=== PATIENT | female | born 1980 | race Caucasian/White ===

== ENCOUNTER 2018-10-08 10:47 | Emergency (ER) | END 2018-10-08 13:28 | disposition home or self-care (01) ==

== ENCOUNTER 2018-12-15 09:46 | Emergency (ER) | payer OTHER ==
[~2018-12-15] VITALS: Ht 162.6 cm; Wt 112.4 kg
[~2018-12-15 09:46] MED LIST: ALBU18HF INHALATION; D-ME473S2 PO; PRED20TA PO
[2018-12-15 09:52] VITALS: BP 126/67; PULSE 99; RESP 18; Ht 162.6 cm; Wt 112.4 kg
[2018-12-15] MEDS ORDERED: KETOROLAC 60 MG INJ IM STA (11:17)
[2018-12-15] MEDS ORDERED: HYDR-4011 PO (11:19)
[2018-12-15] MEDS ORDERED: MED4DP PO (11:19)
[2018-12-15] MEDS ORDERED: NAPR-985 PO (11:19)
--- NOTE | 2018-12-15 13:15 | ERD ---
ER Documentation Chief Complaint Chief Complaint right arm pain x 1 week and lower back pain x 1 week HPI 38-year-old female presenting with pain to right arm times 1 week and lower back pain. She states her pain is worse with movements and denies any traumatic injuries. She denies any numbness or tingling has not taken medications for her symptoms. Denies other medical problems. NKDA. Surgical history denies. Social history denies ROS All systems reviewed and are negative except as per history of present illness. Medications Home Meds Active Scripts Hydrocodone/Acetaminophen ([place] 5-325 Tablet) 1 Each Tablet, 1 TAB PO Q6H PRN for PAIN, #7 TAB Prov:HORACIO SAMPSON PA-C 12/15/18 Methylprednisolone* (Medrol* DOSE PACK) 4 Mg/Dose-Pack Tab.ds.pk, 4 MG PO . DIRECTED, #1 PACKET Prov:HORACIO SAMPSON PA-C 12/15/18 Naproxen* (Naprosyn*) 500 Mg Tablet, 500 MG PO BID PRN for PAIN AND/OR INFLAMMATION, #30 TAB Prov:HORACIO SAMPSON PA-C 12/15/18 Albuterol Sulfate* (Ventolin HFA*) 18 Gm Hfa.aer.ad, 2 PUFF INHALATION Q4H, #1 INHALER Prov:NICOLAS HINES MD 10/08/18 Dextromethorphan Hb-Promethazine Hcl* (Promethazine DM* Syrup) 473 Ml Syrup, 5 ML PO Q6 PRN for COUGH for 4 Days, ML Prov:NICOLAS HINES MD 10/08/18 Prednisone* (Prednisone*) 20 Mg Tab, 60 MG PO DAILY for 5 Days, TAB 60 mg by mouth for 2 days then 40 mg by mouth for 3 days. Start October 09, 2018 Prov:NICOLAS HINES MD 10/08/18 Reported Medications [None] No Conflict Check 02/27/10 Allergies Allergies: Coded Allergies: No Known Allergies (Verified Allergy, Mild, 02/27/10) PMhx/Soc History of Surgery: No Hx Neurological Disorder: No Hx Respiratory Disorders: No Hx Cardiac Disorders: No Hx Psychiatric Problems: No Hx Miscellaneous Medical Probl: No Hx Alcohol Use: No Hx Substance Use: No Hx Tobacco Use: No Smoking Status: Never smoker FmHx Family History: No diabetes, No coronary disease, No other Physical Exam Vitals Vital Signs Date Temp Pulse Resp B/P (MAP) Pulse Ox O2 O2 Flow FiO2 Time Delivery Rate 12/15/18 100.5 99 18 126/67 98 09:52 (86) Physical Exam GENERAL: The patient is well-appearing, well-nourished, in no acute distress HEENT: Atraumatic. Conjunctivae are pink. Pupils equal, round, and reactive to light. There is no scleral icterus. Tympanic membranes clear bilaterally. Oropharynx clear. No nystagmus or photophobia. NECK: C-spine is soft and supple. There is no meningismus. There is no cervical lymphadenopathy. Tender to palpation to paraspinous muscles and trapezius. CHEST: Clear to auscultation bilaterally. There are no rales, wheezes or rhonchi. HEART: Regular rate and rhythm. No murmurs, clicks, rubs or gallops. EXTREMITIES: Equal pulses bilaterally. There is no peripheral clubbing, cyanosis or edema. No focal swelling or erythema. Full range of motion. Grossly neurovascularly intact. NEUROLOGIC: Alert and oriented. Cranial nerves II through XII intact. Motor strength in all 4 extremities with 5 out of 5 strength. Sensation grossly intact. Normal speech and gait. Babinski negative. DTR 2+ throughout. SKIN: There is no apparent rash or petechiae. The skin is warm and dry. Results 24 hrs Current Medications Medications Dose Sig/Jose Eduardo Start Time Status Last (Trade) Ordered Route PRN Stop Time Admin Dose Reason Admin Ketorolac 60 mg ONCE STAT 12/15/18 DC 12/15/18 Tromethamine IM 11:17 11:35 (Toradol) 12/15/18 11:18 Procedures/MDM MDM: 38-year-old female presenting with diffuse body pain. I have low suspicion for acute fracture dislocation. Patient likely has muscular skeletal strain with cervical radiculopathy findings consistent with nerve impingement. I have low suspicion for infectious etiology. Patient is discharged with stricter precautions and told to follow-up with primary care within 1-2 days for close evaluation. Patient is told symptoms change or worsen to return immediately to the ER. All questions answered at discharge Departure Diagnosis: Primary Impression: Injury of upper extremity Condition: Stable Patient Instructions: Muscle Spasm, Neck Pain, No Trauma Referrals: [facility] YOU HAVE RECEIVED A MEDICAL SCREENING EXAM AND THE RESULTS INDICATE THAT YOU DO NOT HAVE A CONDITION THAT REQUIRES URGENT TREATMENT IN THE EMERGENCY DEPARTMENT. FURTHER EVALUATION AND TREATMENT OF YOUR CONDITION CAN WAIT UNTIL YOU ARE SEEN IN YOUR DOCTORS OFFICE WITHIN THE NEXT 1-2 DAYS. IT IS YOUR RESPONSIBILITY TO MAKE AN APPOINTMENT FOR FOLOW-UP CARE. IF YOU HAVE A PRIMARY DOCTOR --you should call your primary doctor and schedule an appointment IF YOU DO NOT HAVE A PRIMARY DOCTOR YOU CAN CALL OUR PHYSICIAN REFERRAL HOTLINE AT IF YOU CAN NOT AFFORD TO SEE A PHYSICIAN YOU CAN CHOSE FROM THE FOLLOWING [facility] [id number] [facility] [address] [facility] [facility] [address] [facility] [address] [facility]. [facility] [address] [facility] [facility]. [address] Additional Instructions: FOLLOW UP WITH YOUR PRIMARY CARE PHYSICIAN TOMORROW.Return to this facility if you are not improving as expected. HORACIO SAMPSON PA-C Dec 15, 2018 13:15
== END 2018-12-15 12:07 | disposition home or self-care (01) ==
LOC: FTE 09:46
DX: S49.91XA Unspecified injury of right shoulder and upper arm, initial encounter (principal); X58.XXXA Exposure to other specified factors, initial encounter; Y92.9 Unspecified place or not applicable
CPT/HCPCS: 96372; J1885; Z7502